=== PATIENT | female | born 1950 | race Caucasian/White ===

== ENCOUNTER 2019-05-16 13:18 | Outpatient (CLI) | payer BC, MEDICARE, SELFPAY ==
--- NOTE | 2019-05-16 13:38 | XR_ITS ---
WS: [email or web address] SCREENING DEXA SCAN [employer] CLINICAL INFORMATION: POSTMENOPAUSAL STATUS COMPARISON: None. FINDINGS: The L1-L4 bone mineral density measures 0.911 g/cm2. This corresponds to a T score score of -2.2 and Z score of -0.4. Left femoral neck bone mineral density measures 0.792 g/cm2. This corresponds to a T score of -1.7 an d Z score of -0.2. Right femoral neck bone mineral density measures 0.808 g/cm2. This corresponds to a T score -1.6of an d Z score of -0.1. Mean femoral neck bone mineral density measures 0.800 g/cm2. This corresponds to a T score of -1.7 an d Z score of -0.2. XR/XR DEXA axial skeleton* [id number] IMPRESSION: Osteopenia Patient's FRAX calculated 10 year probability for major osteoporotic fracture i s 12.3 % and osteoporotic hip fracture is 2.5%.
--- NOTE | 2019-05-16 14:12 | MM_ITS ---
WS: [id number] BILATERAL SCREENING DIGITAL MAMMOGRAM WITH CAD HISTORY: SCREENING COMPARISON: 02/15/2016, 02/25/2014 Bilateral CC and MLO views submitted. Computer aided detection analyzed. Breast composition: There are scattered areas of fibroglandular density. No suspicious masses, microc alcifications or architectural distortion. Intramammary lymph node upper outer quadrant of the LEFT b reast. MM/[id number] IMPRESSION: BI-RADS: 2-Benign FOLLOW UP: 1 Year Follow-up
== END 2019-05-16 13:19 | disposition home or self-care (01) ==
PROVIDERS: Family Provider Family Medicine; Visit Provider Family Medicine
DX: Z12.31 Encounter for screening mammogram for malignant neoplasm of breast (principal); Z78.0 Asymptomatic menopausal state
CPT/HCPCS: 77067; 77080

== ENCOUNTER 2020-05-21 14:35 | Outpatient (CLI) | payer MEDICARE, SELFPAY ==
--- NOTE | 2020-05-21 14:46 | MM_ITS ---
WS: [id number] BILATERAL SCREENING DIGITAL MAMMOGRAM WITH CAD HISTORY: SCREENING COMPARISON: 05/16/2019, 02/15/2016 at 12/05/2011. Bilateral CC and MLO views submitted. Computer aided detection analyzed. Breast composition: There are scattered areas of fibroglandular density. No suspicious masses, microc alcifications or architectural distortion. Long-term stability of an ovoid nodule upper outer quadran t LEFT breast. MM/[id number] IMPRESSION: BI-RADS: 2-Benign FOLLOW UP: 1 Year Follow-up
== END 2020-05-21 14:36 | disposition home or self-care (01) ==
LOC: RADSHAW 14:38
PROVIDERS: Family Provider Family Medicine; Visit Provider Nurse Practitioner Family
DX: Z12.31 Encounter for screening mammogram for malignant neoplasm of breast (principal)
CPT/HCPCS: 77067

== ENCOUNTER 2022-02-25 13:05 | Outpatient (CLI) | payer MEDICARE, SELFPAY ==
--- NOTE | 2022-02-25 13:19 | MM_ITS ---
WS: [id number] BILATERAL 3D TOMOSYNTHESIS DIGITAL SCREENING MAMMOGRAPHY WITH CAD CLINICAL INFORMATION: SCREENING HISTORY: Screening mammogram. No current complaints. COMPARISON: May 21, 2020 TECHNIQUE: Bilateral CC and MLO views. FINDINGS: Scattered fibroglandular densities bilaterally. No suspicious focal mass, asymmetry, calcifications, or architectural distortion. No evidence of malignancy. MM/[id number] IMPRESSION: BI-RADS: 1-Negative FOLLOW UP: 1 Year Follow-up Recommend return to annual screening mammography.
== END 2022-02-25 13:06 | disposition home or self-care (01) ==
PROVIDERS: PCP Nurse Practitioner Family; Visit Provider Nurse Practitioner Family
DX: Z12.31 Encounter for screening mammogram for malignant neoplasm of breast (principal)
CPT/HCPCS: 77063; 77067

== ENCOUNTER 2022-11-28 14:42 | Outpatient (CLI) | payer MEDICARE, SELFPAY ==
--- NOTE | 2022-11-28 15:02 | XRR_ITS ---
PROCEDURE INFORMATION: Exam: XR Right Shoulder Exam date and time: 11/28/2022 3:11 PM Age: 72 years old Clinical indication: Pain; Shoulder; Right; Additional info: Pain in R shoulder TECHNIQUE: Imaging protocol: Radiologic exam of the right shoulder. Views: 2 or more views. COMPARISON: No relevant prior studies available. FINDINGS: Bones/joints: Normal. Soft tissues: Normal. XR/XR shoulder RT min 2V* [id number] IMPRESSION: No acute findings.
== END 2022-11-28 14:43 | disposition home or self-care (01) ==
PROVIDERS: PCP Nurse Practitioner Family; Visit Provider Nurse Practitioner Family
DX: M25.511 Pain in right shoulder (principal)
CPT/HCPCS: 73030

== ENCOUNTER 2023-12-16 16:38 | Inpatient (IN) | payer MEDICARE, SELFPAY ==
[2023-12-16] VITALS (16 sets, daily range): BP systolic 74–102; BP diastolic 42–78; PULSE 95–140; RESP 15–27; TEMP 36.8–36.9; O2SAT 87–98; BMI 24.8; BMI 26.7
--- NOTE | 2023-12-16 17:05 | XRR_ITS ---
PROCEDURE INFORMATION: Exam: XR Chest Exam date and time: 12/16/2023 5:32 PM Age: 73 years old Clinical indication: Shortness of breath; Patient HX: Hypotension; Possible sepsis TECHNIQUE: Imaging protocol: Radiologic exam of the chest. Views: 1 view. COMPARISON: CR XR shoulder RT min 2V* [id number] 11/28/2022 3:11 PM FINDINGS: Lungs: Dense 1.1 cm calcified granuloma in the periphery of the left lower lobe. No focal consolidation. Pleural spaces: No significant pleural effusion. No pneumothorax. Heart/Mediastinum: Moderate to large hiatal hernia. Cardiomegaly. Bones/joints: Bilateral acromioclavicular joint degeneration. XR/XR chest 1V portable [id number] IMPRESSION: 1. No focal consolidation or sizable pleural effusion. 2. Cardiomegaly. 3. Moderate-sized hiatal hernia.
--- NOTE | 2023-12-16 17:11 | ED_ITS ---
Documented by User: Keke Oakley MD 12/16/23 17:42 HPI - Fever 2 General: Chief Complaint: Fever Stated Complaint: Low blood pressure Time Seen by Provider: 12/16/23 17:06 Source: patient Mode of arrival: ambulatory Limitations: no limitations History of Present Illness: 73-year-old female states that she woke this morning feeling nauseous states she has had multiple episodes of vomiting throughout the day. States she is had some chills and shakes and felt febrile states her temp got up to 99 afebrile here. Blood pressure in the room currently is 9458 heart rate 103. She denies any abdominal pain she had some mild dyspnea denies any cough denies any chest pain. She denies any diarrhea denies any worse improved factors. States she feels dehydrated and feels like her mouth is dry from vomiting Associated symptoms: Reports chills, nausea and vomiting; Deny abdominal pain, chest pain, diarrhea, dysuria or headache(s) Related Data Home Medications Medication Instructions Recorded Confirmed atorvastatin 20 mg tablet mg PO 12/16/23 12/16/23 cetirizine 10 mg tablet (Zyrtec) 10 mg PO DAILY PRN 12/16/23 12/16/23 levothyroxine 112 mcg tablet mcg PO 12/16/23 12/16/23 losartan 100 mg tablet mg PO 12/16/23 12/16/23 omega 0-emn-noy-fish oil 1,200 mg cap PO 12/16/23 12/16/23 (144 mg-216 mg) capsule (Fish Oil) vitamins A,C,J-xihn-rxolxj 2,148 2 tab PO BID 12/16/23 12/16/23 mcg-113 mg-45 mg-17.4 mg tablet (PreserVision AREDS) Allergies Allergy/AdvReac Type Severity Reaction Status Date / Time cefadroxil Allergy ALGY-Rash Verified 12/16/23 16:51 tetanus toxoid, adsorbed Allergy ADR-Vomitin Verified 12/16/23 16:51 g Review of Systems 2 Const: Reports: fever(s), chills and body aches; Denies: change in appetite Eyes: Denies: eye discomfort ENMT: Denies: throat pain or dental pain Card: Denies: chest pain Resp: Reports: dyspnea GI: Reports: nausea and vomiting; Denies: abdominal pain or diarrhea : Denies: dysuria Musc: Denies: neck pain or back pain Skin/Breast: Denies: rash Neuro: Denies: headache(s) PFSH ED 2 PFSH: Medical History Hypothyroidism Hyperlipidemia Hypertension Macular degeneration Surgical History History of eye surgery Family History Brother CAD (coronary artery disease) Brother Kidney stones Brother Alcohol dependence Social History Smoking and tobacco/nicotine status: former use of tobacco/nicotine Alcohol intake: never Substance/Drug Use: never Physical Exam 2 Const: COMMON NORMALS: patient oriented x3 HENMT: COMMON NORMALS: normocephalic and atraumatic HEAD & SCALP: n ormocephalic and atraumatic Eye: COMMON NORMALS: Equal, round and reactive pupils present and EOMs intact bilaterally PUPIL: Yes Equal, round and reactive pupils present Neck/C-Spine: COMMON NORMALS: full ROM and supple Chest: COMMONS NORMALS: normal inspection of the chest Resp: COMMON NORMALS: normal respiratory effort, No retractions, No use of accessory muscles and clear to auscultation bilaterally AUSCULTATION: clear to auscultation bilaterally Cardio: COMMON NORMALS: regular rhythm and No murmurs present (Cardio) R ATE: tachycardic RHYTHM: regular rhythm GI: COMMON NORMALS: Normal to inspection, nondistended, normoactive bowel sounds present, Soft to palpation, non-tender and no masses PALPATION: Yes Soft to palpation Extremity: COMMON NORMALS: normal to inspection and full ROM Neuro: COMMON NORMALS: patient oriented x3, moves all extremities and no focal motor deficits Psych: COMMON NORMALS: mental status grossly normal, Normal thought process present and cooperative THOUGHT PROCESS: Normal thought process present Skin: COMMON NORMALS: no rashes or lesions noted and no wounds GENERAL SKIN EXAM: no rashes or lesions noted Course 2 Vital Signs: Vital signs: Vital Signs Temperature 98.4 F 12/16/23 22:00 Pulse Rate 96 12/16/23 22:00 Respiratory Rate 17 12/16/23 22:00 Blood Pressure 82/43 12/16/23 22:00 Pulse Oximetry 96 12/16/23 22:00 Oxygen Delivery Me thod Room Air 12/16/23 22:00 MDM - Fever Medical Records I reviewed the patient's medical records. Lab Data I reviewed the patient's lab results. 12/16/23 17:09 12/16/23 17:09 Radiology Impressions Chest X-Ray 12/16/23 17:05 IMPRESSION: 1. No focal consolidation or sizable pleural effusion. 2. Cardiomegaly. 3. Moderate-sized hiatal hernia. Chest/Abdomen/Pelvis CT 12/16/23 18:01 IMPRESSION: 1. 2.0 cm pure ground-glass right upper lobe nodule, suspicious for adenocarcinoma spectrum lesion. No solid component. Follow-up per Fleischner guidelines recommended. 2. Additional biapical solid nodules, which may be related to nodular pleural-parenchymal scarring. Close attention on follow-up imaging is also recommended. 3. Moderate to large hiatal hernia. 4. No focal consolidation or acute findings. IMPRESSION: 1. Diffuse bladder wall thickening, suspicious for cystitis. 2. Left perinephric and periureteral stranding and edema, suspicious for pyelonephritis and ureteritis. Findings may also be related to a recently passed stone. There is no CT evidence of nephrolithiasis. No hydronephrosis. 3. Left upper retroperitoneal lymphadenopathy, likely reactive. COMMENTS: Consistent with the [employer]'s Incidental Findings Committee white paper (J Am Kevan Radiol 2018): Any incidental renal lesion less than 1 cm or classified as too small to characterize, or any incidental cystic renal lesion characterized as simple-appearing, is likely benign. No follow-up imaging is recommended for these lesions per consensus recommendations based on imaging criteria. Laboratory Results WBC 15.63 10^3/uL (3.29-11.43) H 12/16/23 17:09 RBC 4.00 10^6/uL (3.85-5.65) 12/16/23 17:09 Hgb 10.90 g/dL (11.27-16.99) L 12/16/23 17:09 Hct 34.2 % (36-47) L 12/16/23 17:09 MCV 85.5 fl (85-98) 12/16/23 17:09 MCH 27.3 pg (27-33) 12/16/23 17:09 MCHC 31.9 g/dL (30-55) 12/16/23 17:09 RDW 14.0 % (12.1-15.1) 12/16/23 17:09 Plt Count 260 10^3/cmm (157-399) 12/16/23 17:09 MPV 9.7 fL (7.4-10.4) 12/16/23 17:09 Neut % (Auto) 94.9 % 12/16/23 17:09 Lymph % (Auto) 2.8 % 12/16/23 17:09 Whiteside % (Auto) 1.1 % 12/16/23 17:09 Eos % (Auto) 0.2 % 12/16/23 17:09 Baso % (Auto) 0.4 % 12/16/23 17:09 Neut # (Auto) 14.83 10^3/uL (1.8-7.7) H 12/16/23 17:09 Lymph # (Auto) 0.4 10^3/uL (0.8-4.8) L 12/16/23 17:09 Whiteside # (Auto) 0.2 10^3/uL (0.2-0.9) 12/16/23 17:09 Eos # (Auto) 0.0 10^3/uL (0.0-0.8) 12/16/23 17:09 Baso # (Auto) 0.1 10^3/uL (0.0-0.1) 12/16/23 17:09 Nucleated RBC % (auto) 0 % 12/16/23 17:09 Nucleated RBCs # 0.0 /100WBC 12/16/23 17:09 Specimen Type Arterial 12/16/23 17:04 Sample Site Radial, right 12/16/23 17:04 ABG pH 7.44 (7.35-7.45) 12/16/23 17:04 ABG pCO2 28.2 mmHg (35-45) L 12/16/23 17:04 ABG pO2 36.5 mmHg (80.0-100.0) L* 12/16/23 17:04 ABG PO2/FiO2 Ratio 173 12/16/23 17:04 ABG HCO3 19.3 mmol/L (22-26) L 12/16/23 17:04 ABG O2 Saturation 71.5 12/16/23 17:04 ABG Base Excess -3.8 mmol/L (-2.0-2.0) L 12/16/23 17:04 Josemanuel Test Pos 12/16/23 17:04 A-a O2 Gradient 10.1 mmHg (5-10) H 12/16/23 17:04 Hematocrit 34.2 % (37-47) L 12/16/23 17:04 Hgb O2 Saturation 70.0 % (95-100) L 12/16/23 17:04 Carboxyhemoglobin 0.8 %THgb (0.4-20.1) 12/16/23 17:04 Methemoglobin 1.3 % (0.4-1.5) 12/16/23 17:04 Total Hemoglobin 11.2 g/dL (12-16) L 12/16/23 17:04 Sodium 135.0 mmol/L (131-143) 12/16/23 17:04 Potassium 4.1 mmol/L (3.5-5.0) 12/16/23 17:04 Glucose 109.0 mg/dL (70-115) 12/16/23 17:04 Ionized Calcium 1.2 mmol/L (1.1-1.4) 12/16/23 17:04 O2 Delivery Device Room air 12/16/23 17:04 FiO2 21.0 % 12/16/23 17:04 Acoustical Carpenter ID 2alci 12/16/23 17:04 Sodium 133 mmol/L (136-145) L 12/16/23 17:09 Potassium 4.2 mmol/L (3.5-5.1) 12/16/23 17:09 Chloride 100 mmol/L (98-107) 12/16/23 17:09 Carbon Dioxide 19 mmol/L (22-29) L 12/16/23 17:09 Anion Gap 18.2 (5-19) 12/16/23 17:09 BUN 32 mg/dL (8-23) H 12/16/23 17:09 Creatinine 2.5 mg/dL (0.5-0.9) H 12/16/23 17:09 GFR Calculation Not Reportable 12/16/23 17:09 Glucose 111 mg/dL (65-115) 12/16/23 17:09 Calculated Osmolality 284 mOsm/kg (285-295) L 12/16/23 17:09 Lactic Acid 2.6 mmol/L (0.5-2.2) H 12/16/23 17:09 Lactic Acid (Sepsis) 2.7 mmol/L (0.5-2.2) H 12/16/23 20:08 Calcium 8.9 mg/dL (8.5-10.5) 12/16/23 17:09 Magnesium 1.8 mg/dL (1.7-2.3) 12/16/23 17:09 Total Bilirubin 0.3 mg/dL (0.15-1.2) 12/16/23 17:09 AST 382 U/L (0-32) H 12/16/23 17:09 ALT 266 U/L (0-33) H 12/16/23 17:09 Alkaline Phosphatase 207 U/L (35-105) H 12/16/23 17:09 Troponin T Baseline 11 ng/L (0-10) H 12/16/23 17:09 Troponin T 120 Minute 7.99 ng/L (0-10) 12/16/23 18:48 Delta Troponin T -3.01 ABS# (0-10) L 12/16/23 18:48 Total Protein 6.5 g/dL (6.6-8.7) L 12/16/23 17:09 Albumin 3.7 g/dL (3.5-5.2) 12/16/23 17:09 Globulin 2.8 g/dL (1.3-4.6) 12/16/23 17:09 TSH 0.90 uIU/mL (0.27-4.20) 12/16/23 17:09 Urine Color Yellow (Yellow) 12/16/23 18:05 Urine Appearance Turbid (CLEAR) A 12/16/23 18:05 Urine pH 5.5 (5-7) 12/16/23 18:05 Ur Specific [place] 1.016 (1.005-1.030) 12/16/23 18:05 Urine Protein 2+ (Negative) A 12/16/23 18:05 Urine Glucose (UA) Negative (Normal) 12/16/23 18:05 Urine Ketones Trace (Negative) 12/16/23 18:05 Urine Blood 3+ (Negative) A 12/16/23 18:05 Urine Nitrate Negative (Negative) 12/16/23 18:05 Urine Bilirubin Negative (Negative) 12/16/23 18:05 Urine Urobilinogen 1.0 mg/dL (Negative) 12/16/23 18:05 Ur Leukocyte Esterase 3+ (Negative) A 12/16/23 18:05 Urine RBC 0-2 /hpf (0-2) 12/16/23 18:05 Urine WBC >100 /hpf (0-5) H 12/16/23 18:05 Ur Squamous Epith Cells 6-10 /hpf (0-5) 12/16/23 18:05 Amorphous Sediment Not Reportable 12/16/23 18:05 Urine Bacteria 4+ /hpf (NONE) H 12/16/23 18:05 Hyaline Casts 44.25 /lpf 12/16/23 18:05 Urine Mucus 1+ /hpf 12/16/23 18:05 SARS-CoV-2 Ag (Rapid) negative (Negative) 12/16/23 17:29 All radiology interpretation(s) finalized by discharge EKG Data EKG 1: I personally reviewed and interpreted this EKG as follows: EKG interpretation date: 12/16/23 EKG interpretation time: 17:29 Interpretation: sinus tach hr [address] elevation qrs 93 qtc 382 Discharge Plan Discharge Patient Disposition: Admitted As Inpatient Admit Provider: Zion Vu Clinical Impression: Pyelonephritis, Sepsis, ROSALINDA (acute kidney injury) Condition: Stable Coding Level of Care Code ED [employer] Director for Chg Fwd Documented by User: Salvador Brown DO 12/17/23 00:21 HPI - Fever 2 General: Chief Complaint: Fever Stated Complaint: Low blood pressure Time Seen by Provider: 12/16/23 17:06 Related Data Home Medications Medication Instructions Recorded Confirmed atorvastatin 20 mg tablet mg PO 12/16/23 12/16/23 cetirizine 10 mg tablet (Zyrtec) 10 mg PO DAILY PRN 12/16/23 12/16/23 levothyroxine 112 mcg tablet mcg PO 12/16/23 12/16/23 losartan 100 mg tablet mg PO 12/16/23 12/16/23 omega 3-kvm-rbo-fish oil 1,200 mg cap PO 12/16/23 12/16/23 (144 mg-216 mg) capsule (Fish Oil) vitamins A,C,S-ybqg-dafynd 2,148 2 tab PO BID 12/16/23 12/16/23 mcg-113 mg-45 mg-17.4 mg tablet (PreserVision AREDS) Allergies Allergy/AdvReac Type Severity Reaction Status Date / Time cefadroxil Allergy ALGY-Rash Verified 12/16/23 16:51 tetanus toxoid, adsorbed Allergy ADR-Vomitin Verified 12/16/23 16:51 g PFSH ED 2 PFSH: Medical History Hypothyroidism Hyperlipidemia Hypertension Macular degeneration Surgical History History of eye surgery Family History Brother CAD (coronary artery disease) Brother Kidney stones Brother Alcohol dependence Social History Smoking and tobacco/nicotine status: former use of tobacco/nicotine Alcohol intake: never Substance/Drug Use: never Course 2 Vital Signs: Vital signs: Vital Signs Temperature 98.4 F 12/16/23 22:00 Pulse Rate 96 12/16/23 22:00 Respiratory Rate 17 12/16/23 22:00 Blood Pressure 82/43 12/16/23 22:00 Pulse Oximetry 96 12/16/23 22:00 Oxygen Delivery Me thod Room Air 12/16/23 22:00 MDM - Fever Medical Decision Making Received in checkout at shift change. 73-year-old lady with chills, feeling feverish, vomiting. White blood cell count is 15.6. Creatinine is up to 2.5. Bicarbonate is 19. Lactic acid is 2.5. Urinalysis shows greater than 100 whites. 0-2 reds. 3+ leukocyte esterase. She has received a sepsis bolus. Initially pressures were in the 80s systolic, she has been 90s over 50s and 60s since her initial liter. She said 2.5 L plus, maintenance now. She is awake alert and talking. CT shows left perinephric and periureteral stranding which looks like pyelonephritis. There is no hydronephrosis or obstruction. She will be admitted. She go to the ICU given her soft blood pressures. She is maintained a MAP above 65 at this point, so she is not on pressors. Hospitalist is aware and will see the patient Lab Data 12/16/23 17:09 12/16/23 17:09 Radiology Impressions Chest X-Ray 12/16/23 17:05 IMPRESSION: 1. No focal consolidation or sizable pleural effusion. 2. Cardiomegaly. 3. Moderate-sized hiatal hernia. Chest/Abdomen/Pelvis CT 12/16/23 18:01 IMPRESSION: 1. 2.0 cm pure ground-glass right upper lobe nodule, suspicious for adenocarcinoma spectrum lesion. No solid component. Follow-up per Fleischner guidelines recommended. 2. Additional biapical solid nodules, which may be related to nodular pleural-parenchymal scarring. Close attention on follow-up imaging is also recommended. 3. Moderate to large hiatal hernia. 4. No focal consolidation or acute findings. IMPRESSION: 1. Diffuse bladder wall thickening, suspicious for cystitis. 2. Left perinephric and periureteral stranding and edema, suspicious for pyelonephritis and ureteritis. Findings may also be related to a recently passed stone. There is no CT evidence of nephrolithiasis. No hydronephrosis. 3. Left upper retroperitoneal lymphadenopathy, likely reactive. COMMENTS: Consistent with the [employer]'s Incidental Findings Committee white paper (J Am Kevan Radiol 2018): Any incidental renal lesion less than 1 cm or classified as too small to characterize, or any incidental cystic renal lesion characterized as simple-appearing, is likely benign. No follow-up imaging is recommended for these lesions per consensus recommendations based on imaging criteria. Laboratory Results WBC 15.63 10^3/uL (3.29-11.43) H 12/16/23 17:09 RBC 4.00 10^6/uL (3.85-5.65) 12/16/23 17:09 Hgb 10.90 g/dL (11.27-16.99) L 12/16/23 17:09 Hct 34.2 % (36-47) L 12/16/23 17:09 MCV 85.5 fl (85-98) 12/16/23 17:09 MCH 27.3 pg (27-33) 12/16/23 17:09 MCHC 31.9 g/dL (30-55) 12/16/23 17:09 RDW 14.0 % (12.1-15.1) 12/16/23 17:09 Plt Count 260 10^3/cmm (157-399) 12/16/23 17:09 MPV 9.7 fL (7.4-10.4) 12/16/23 17:09 Neut % (Auto) 94.9 % 12/16/23 17:09 Lymph % (Auto) 2.8 % 12/16/23 17:09 Whiteside % (Auto) 1.1 % 12/16/23 17:09 Eos % (Auto) 0.2 % 12/16/23 17:09 Baso % (Auto) 0.4 % 12/16/23 17:09 Neut # (Auto) 14.83 10^3/uL (1.8-7.7) H 12/16/23 17:09 Lymph # (Auto) 0.4 10^3/uL (0.8-4.8) L 12/16/23 17:09 [place] # (Auto) 0.2 10^3/uL (0.2-0.9) 12/16/23 17:09 Eos # (Auto) 0.0 10^3/uL (0.0-0.8) 12/16/23 17:09 Baso # (Auto) 0.1 10^3/uL (0.0-0.1) 12/16/23 17:09 Nucleated RBC % (auto) 0 % 12/16/23 17:09 Nucleated RBCs # 0.0 /100WBC 12/16/23 17:09 Specimen Type Arterial 12/16/23 17:04 Sample Site Radial, right 12/16/23 17:04 ABG pH 7.44 (7.35-7.45) 12/16/23 17:04 ABG pCO2 28.2 mmHg (35-45) L 12/16/23 17:04 ABG pO2 36.5 mmHg (80.0-100.0) L* 12/16/23 17:04 ABG PO2/FiO2 Ratio 173 12/16/23 17:04 ABG HCO3 19.3 mmol/L (22-26) L 12/16/23 17:04 ABG O2 Saturation 71.5 12/16/23 17:04 ABG Base Excess -3.8 mmol/L (-2.0-2.0) L 12/16/23 17:04 Josemanuel Test Pos 12/16/23 17:04 A-a O2 Gradient 10.1 mmHg (5-10) H 12/16/23 17:04 Hematocrit 34.2 % (37-47) L 12/16/23 17:04 Hgb O2 Saturation 70.0 % (95-100) L 12/16/23 17:04 Carboxyhemoglobin 0.8 %THgb (0.4-20.1) 12/16/23 17:04 Methemoglobin 1.3 % (0.4-1.5) 12/16/23 17:04 Total Hemoglobin 11.2 g/dL (12-16) L 12/16/23 17:04 Sodium 135.0 mmol/L (131-143) 12/16/23 17:04 Potassium 4.1 mmol/L (3.5-5.0) 12/16/23 17:04 Glucose 109.0 mg/dL (70-115) 12/16/23 17:04 Ionized Calcium 1.2 mmol/L (1.1-1.4) 12/16/23 17:04 O2 Delivery Device Room air 12/16/23 17:04 FiO2 21.0 % 12/16/23 17:04 Acoustical Carpenter ID 2alci 12/16/23 17:04 Sodium 133 mmol/L (136-145) L 12/16/23 17:09 Potassium 4.2 mmol/L (3.5-5.1) 12/16/23 17:09 Chloride 100 mmol/L (98-107) 12/16/23 17:09 Carbon Dioxide 19 mmol/L (22-29) L 12/16/23 17:09 Anion Gap 18.2 (5-19) 12/16/23 17:09 BUN 32 mg/dL (8-23) H 12/16/23 17:09 Creatinine 2.5 mg/dL (0.5-0.9) H 12/16/23 17:09 GFR Calculation Not Reportable 12/16/23 17:09 Glucose 111 mg/dL (65-115) 12/16/23 17:09 Calculated Osmolality 284 mOsm/kg (285-295) L 12/16/23 17:09 Lactic Acid 2.6 mmol/L (0.5-2.2) H 12/16/23 17:09 Lactic Acid (Sepsis) 2.7 mmol/L (0.5-2.2) H 12/16/23 20:08 Calcium 8.9 mg/dL (8.5-10.5) 12/16/23 17:09 Magnesium 1.8 mg/dL (1.7-2.3) 12/16/23 17:09 Total Bilirubin 0.3 mg/dL (0.15-1.2) 12/16/23 17:09 AST 382 U/L (0-32) H 12/16/23 17:09 ALT 266 U/L (0-33) H 12/16/23 17:09 Alkaline Phosphatase 207 U/L (35-105) H 12/16/23 17:09 Troponin T Baseline 11 ng/L (0-10) H 12/16/23 17:09 Troponin T 120 Minute 7.99 ng/L (0-10) 12/16/23 18:48 Delta Troponin T -3.01 ABS# (0-10) L 12/16/23 18:48 Total Protein 6.5 g/dL (6.6-8.7) L 12/16/23 17:09 Albumin 3.7 g/dL (3.5-5.2) 12/16/23 17:09 Globulin 2.8 g/dL (1.3-4.6) 12/16/23 17:09 TSH 0.90 uIU/mL (0.27-4.20) 12/16/23 17:09 Urine Color Yellow (Yellow) 12/16/23 18:05 Urine Appearance Turbid (CLEAR) A 12/16/23 18:05 Urine pH 5.5 (5-7) 12/16/23 18:05 Ur Specific [place] 1.016 (1.005-1.030) 12/16/23 18:05 Urine Protein 2+ (Negative) A 12/16/23 18:05 Urine Glucose (UA) Negative (Normal) 12/16/23 18:05 Urine Ketones Trace (Negative) 12/16/23 18:05 Urine Blood 3+ (Negative) A 12/16/23 18:05 Urine Nitrate Negative (Negative) 12/16/23 18:05 Urine Bilirubin Negative (Negative) 12/16/23 18:05 Urine Urobilinogen 1.0 mg/dL (Negative) 12/16/23 18:05 Ur Leukocyte Esterase 3+ (Negative) A 12/16/23 18:05 Urine RBC 0-2 /hpf (0-2) 12/16/23 18:05 Urine WBC >100 /hpf (0-5) H 12/16/23 18:05 Ur Squamous Epith Cells 6-10 /hpf (0-5) 12/16/23 18:05 Amorphous Sediment Not Reportable 12/16/23 18:05 Urine Bacteria 4+ /hpf (NONE) H 12/16/23 18:05 Hyaline Casts 44.25 /lpf 12/16/23 18:05 Urine Mucus 1+ /hpf 12/16/23 18:05 SARS-CoV-2 Ag (Rapid) negative (Negative) 12/16/23 17:29 Critical Care Time 2 Critical Care Time: Critical Care Time: Yes Total Critical Care Time: 35 Attestation: This case had a high probability of a clinically significant, sudden, or life threatening deterioration of this patient's condition which required my full and direct attention, intervention and personal management. Time is independent of any procedures performed. Discharge Plan Discharge Patient Disposition: Admitted As Inpatient Admit Provider: Zion Vu Clinical Impression: Pyelonephritis, Sepsis, ROSALINDA (acute kidney injury) Condition: Stable Coding Level of Care Code ED [employer] Director for Sonia Nichols
[2023-12-16 17:15] LABS: ABG PCO2 28.2 mmHg (35-45); ABG PH Result 7.44 (7.35-7.45); Alveolar-Arterial Oxygen Gradi 10.1 mmHg (5-10); Arterial Blood Gas Hematocrit 34.2 % (37-47); Base Excess ABG -3.8 mmol/L (-2.0-2.0); Blood Gas Allen Test Pos; Blood Gas Operator Identificat 2ALCI; Blood Gas Sample Site Radial, right; Blood Gas Sample Type Arterial; Carboxyhemoglobin 0.8 %THgb (0.4-20.1); HCO3 ABG 19.3 mmol/L (22-26); Ionized Calcium Level - ABG 1.2 mmol/L (1.1-1.4); Methemoglobin 1.3 % (0.4-1.5); Oxygen Device ROOM AIR; Oxygen Saturation ABG 71.5; PO2 ABG 36.5 mmHg (80.0-100.0); PO2 FiO2 Ratio Arterial Blood 173; Potassium Level - ABG 4.1 mmol/L (3.5-5.0); Total Hemoglobin 11.2 g/dL (12-16)
[2023-12-16 17:16] LABS: Basophils # 0.1 10^3/uL (0.0-0.1); Basophils % 0.4 %; Eosinophils % 0.2 %; Hematocrit 34.2 % (36-47); Lymphocytes # 0.4 10^3/uL (0.8-4.8); Lymphocytes % 2.8 %; Mean Corpuscular HGB Conc 31.9 g/dL (30-55); Mean Corpuscular Hemoglobin 27.3 pg (27-33); Mean Corpuscular Volume 85.5 fl (85-98); Mean Platelet Volume 9.7 fL (7.4-10.4); Monocytes # 0.2 10^3/uL (0.2-0.9); Monocytes % 1.1 %; Neutrophils # 14.83 10^3/uL (1.8-7.7); Neutrophils % 94.9 %; Nucleated Red Blood Cells % 0 %; Platelet Count 260 10^3/cmm (157-399); White Blood Count 15.63 10^3/uL (3.29-11.43)
--- NOTE | 2023-12-16 17:20 | PC.RESP ---
ABG ORDERED. RT ATTEMPTED TO DRAW ARTERIAL GAS. AFTER RUNNING GAS, IT WAS DETERMINED THAT IT WAS VENOUS. RT TOOK RESULTS TO DR. BEYER. DR BEYER STATED HE WAS ALRIGHT WITH IT BEING AN VENOUS GAS AND DID NOT WISH TO HAVE RT REATTEMPT ABG AT THIS TIME. RESULTS IN CHART ARE VENOUS GAS RESULTS
[2023-12-16] MEDS: sodium chloride 0.9% 1,850.67 ML 1850.67 ML IV (17:28)
[2023-12-16] MEDS: ondansetron 2 mg/ML SDV 2 mL 4 MG IVP ×2 (17:28→23:43)
--- NOTE | 2023-12-16 17:29 | ECG_ITS ---
[facility] Test Date: 2023-12-16 Pat Name: Jennifer Barreto Department: Room: Gender: Female Progress Clerk: : 1950 Requested By: Keke Oakley Order Number: [id number] Reading MD: ASHLEE OLIVA Measurements Intervals [place] Rate: 100 P: 52 IN: 173 QRS: -3 QRSD: 93 T: 20 QT: 325 QTc: 420 Interpretive Statements SINUS TACHYCARDIA POSSIBLE LEFT ATRIAL ENLARGEMENT [-0.1mV P-WAVE IN V1/V2] LOW QRS VOLTAGE IN PRECORDIAL LEADS [QRS DEFLECTION < 1.0 mV IN CHEST LEADS] INCOMPLETE RIGHT BUNDLE BRANCH BLOCK [90+ ms QRS DURATION, TERMINAL R IN V1/V2, 40+ ms S IN I/aVL/V4/V5/V6] POSSIBLE LEFT VENTRICULAR HYPERTROPHY [VOLTAGE CRITERIA PLUS LAE OR QRS WIDENING] MINIMAL ST DEPRESSION [0.025+ mV ST DEPRESSION] No previous ECG available for comparison Electronically Signed On 12-16-2023 20:27:17 CDT by ASHLEE OLIVA [email or web address]
[2023-12-16 17:36] LABS: Troponin(5th) Baseline 11 ng/L (0-10)
[2023-12-16 17:37] LABS: Lactic Sepsis W/Reflex 2.6 mmol/L (0.5-2.2)
[2023-12-16 17:46] LABS: Alanine Aminotransferase 266 U/L (0-33); Albumin Level 3.7 g/dL (3.5-5.2); Alkaline Phosphatase 207 U/L (35-105); Anion Gap 18.2 (5-19); Aspartate Amino Transferase 382 U/L (0-32); Blood Urea Nitrogen 32 mg/dL (8-23); Calcium 8.9 mg/dL (8.5-10.5); Carbon Dioxide 19 mmol/L (22-29); Chloride 100 mmol/L (98-107); Globulin 2.8 g/dL (1.3-4.6); Glucose 111 mg/dL (65-115); Magnesium 1.8 mg/dL (1.7-2.3); Osmolality Calculated 284 mOsm/kg (285-295); Potassium 4.2 mmol/L (3.5-5.1); Sodium 133 mmol/L (136-145); Total Bilirubin 0.3 mg/dL (0.15-1.2); Total Protein 6.5 g/dL (6.6-8.7)
[2023-12-16 17:52] LABS: SARS Covid-2 Antigen negative (Negative)
[2023-12-16 17:56] LABS: Creatinine Clr Calc Pharmacy 17.5762
--- NOTE | 2023-12-16 18:01 | CTR_ITS ---
PROCEDURE INFORMATION: Exam: CT Chest Without Contrast; Diagnostic Exam date and time: 12/16/2023 6:15 PM Age: 73 years old Clinical indication: Pain and abnormal findings; Abnormal lab test; Abnormal kidney function lab tests and elevated wbc; Nausea and vomiting; Abdominal pain; Generalized; Abnormal diagnostic tests; Abnormal wbc; Shortness of breath; Other: N/a; Patient HX: C/O SOB with n/v. Hypotensive with cara and p02 of 36.5. ; Additional info: Abd pain TECHNIQUE: Imaging protocol: Diagnostic computed tomography of the chest without contrast. Radiation optimization: All CT scans at this facility use at least one of these dose optimization techniques: automated exposure control; mA and/or kV adjustment per patient size (includes targeted exams where dose is matched to clinical indication); or iterative reconstruction. COMPARISON: CR (CHEST, ) 12/16/2023 5:32 PM RADIATION DOSE METRICS: Total DLP (mGy-cm): 610.06 FINDINGS: Limitations: The images are motion degraded. Trachea: Small right posterior tracheal diverticulum. The central airways are patent. Lungs: 2.0 cm right upper lobe pure ground-glass nodule (series 3, image 17), with internal cystic spaces and adjacent mild bronchiolectasis. No solid component. Additional right apical nodules, including a 10 mm peripheral right upper lobe nodule (series 3, image 15), which may be discrete solid nodules or represent nodular pleuroparenchymal scarring. Nodular scarring also noted in the left apex. 15.5 cm calcified granuloma in the periphery of the left lower lobe. No focal consolidation. Bibasilar atelectasis. Pleural spaces: No pleural effusion. No pneumothorax. Heart: The heart is normal in size. Coronary arteries: There are scattered mild coronary artery calcifications. Lymph nodes: No enlarged lymph nodes by CT size criteria. Vasculature: Moderate calcifications of the thoracic aorta. The aorta is normal in caliber. No aneurysm. Diaphragm: Moderate to large hiatal hernia. Bones/joints: The spine demonstrates mild degenerative changes at multiple levels. No acute fracture. Soft tissues: Soft tissues are unremarkable as visualized. COMMENTS: Recommend CT Chest at 6-12 months to confirm persistence of the nodule, then CT Chest at 3 years and 5 years. (Reference: Zach) REFERENCES: Zach Lyn et al. Guidelines for Management of Incidental Pulmonary Nodules Detected on CT Images: From the Fleischner Society 2017. Radiology. 2017;284(1):228-243. PROCEDURE INFORMATION: Exam: CT Abdomen And Pelvis Without Contrast Exam date and time: 12/16/2023 6:15 PM Age: 73 years old Clinical indication: Pain and abnormal findings; Abnormal lab test; Abnormal kidney function lab tests and elevated wbc; Nausea and vomiting; Abdominal pain; Generalized; Abnormal diagnostic tests; Abnormal wbc; Shortness of breath; Other: N/a; Patient HX: C/O SOB with n/v. Hypotensive with cara and p02 of 36.5. ; Additional info: Abd pain TECHNIQUE: Imaging protocol: Computed tomography of the abdomen and pelvis without contrast. Radiation optimization: All CT scans at this facility use at least one of these dose optimization techniques: automated exposure control; mA and/or kV adjustment per patient size (includes targeted exams where dose is matched to clinical indication); or iterative reconstruction. COMPARISON: CR (CHEST, ) 12/16/2023 5:32 PM RADIATION DOSE METRICS: Total DLP (mGy-cm): 610.06 FINDINGS: Liver: The liver is normal. Gallbladder and biliary ducts: Mild gallbladder sludge. No biliary dilation. Pancreas: The pancreas is normal. Spleen: The spleen is normal. Adrenal glands: The adrenal glands are unremarkable. Kidneys and ureters: Left perinephric stranding and edema. No hydronephrosis. No nephrolithiasis. No visualized stone within the left ureter. 7 mm hyperdense proteinaceous/hemorrhagic renal cyst in the right upper pole. Stomach and bowel: Colonic diverticulosis without evidence of diverticulitis. Appendix: A normal appendix is identified. Intraperitoneal space: No significant peritoneal free fluid. No free peritoneal air. Vasculature: The vasculature demonstrates diffuse moderate atherosclerotic calcification. Lymph nodes: Prominent left upper retroperitoneal/perinephric lymph nodes measuring up to 1.1 cm in short axis, likely reactive. Urinary bladder: There is diffuse bladder wall thickening. Reproductive: Uterus is unremarkable. No suspicious adnexal lesion seen. Bones/joints: Severe degenerative changes of the lumbar spine. No acute fracture. Soft tissues: Soft tissues are unremarkable as visualized. CT/[place] [id number] IMPRESSION: 1. 2.0 cm pure ground-glass right upper lobe nodule, suspicious for adenocarcinoma spectrum lesion. No solid component. Follow-up per Fleischner guidelines recommended. 2. Additional biapical solid nodules, which may be related to nodular pleural-parenchymal scarring. Close attention on follow-up imaging is also recommended. 3. Moderate to large hiatal hernia. 4. No focal consolidation or acute findings. IMPRESSION: 1. Diffuse bladder wall thickening, suspicious for cystitis. 2. Left perinephric and periureteral stranding and edema, suspicious for pyelonephritis and ureteritis. Findings may also be related to a recently passed stone. There is no CT evidence of nephrolithiasis. No hydronephrosis. 3. Left upper retroperitoneal lymphadenopathy, likely reactive. COMMENTS: Consistent with the [place]'s Incidental Findings Committee white paper (J Am Kevan Radiol 2018): Any incidental renal lesion less than 1 cm or classified as too small to characterize, or any incidental cystic renal lesion characterized as simple-appearing, is likely benign. No follow-up imaging is recommended for these lesions per consensus recommendations based on imaging criteria.
[2023-12-16] MEDS: sodium chloride 0.9% 500 ML 999 ML IV (18:08)
[2023-12-16 18:12] LABS: Charge for UA Resulting for Rev
[2023-12-16 18:14] LABS: Bilirubin Urine Negative (Negative); Blood Urine 3+ (Negative); Glucose Urine UA Negative (Normal); Ketones Urine Trace (Negative); Leukocyte Esterase Urine 3+ (Negative); Nitrate Urine Negative (Negative); Protein Urine 2+ (Negative); Specific Gravity, Urine 1.016 (1.005-1.030); Urine Appearance Turbid (CLEAR); Urine Color Yellow (Yellow); pH Urine 5.5 (5-7)
[2023-12-16 18:19] LABS: Bacteria Urine 4+ /hpf; Hyaline Casts Urine 44.25 /lpf; RBC Urine 0-2 /hpf (0-2); WBC Urine >100 /hpf (0-5)
[2023-12-16 18:30] LABS: Add Urine Culture? Yes; Mucus Urine 1+ /hpf; UA Slide Review UA Slide Review Perf
[2023-12-16 19:01] LABS: Reflex Lactate Order REFLEX LACTIC ORDERD
--- NOTE | 2023-12-16 19:05 | ECG_ITS ---
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
[2023-12-16 19:18] LABS: Troponin 5 2HR 7.99 ng/L (0-10); Troponin 5 2HR Delta -3.01 ABS# (0-10)
[2023-12-16] MEDS: sodium chloride 0.9% 1,000 ML 175 ML IV (19:38)
[2023-12-16] MEDS: piperacillin-tazobactam 3.375 GM in sodium chloride 0.9% (plus) 50 ML IV (19:43)
--- NOTE | 2023-12-16 20:21 | P.HP_ITS ---
Providers/Chief Complaint 2 Primary Care Provider: Hoda Solano Chief Complaint: Low blood pressure History of Present Illness Jennifer Barreto is a 73 year old female with a past medical history significant for hypertension, hyperlipidemia, hypothyroidism, and macular degeneration who presents to the emergency department with intractable nausea and vomiting. Patient states symptoms started this morning. She reports she has not been able to hold anything down. She endorses associated left-sided low back tenderness. She reports radiation into her low abdomen. She endorses chills. Denies fevers. She states she found her blood pressure was low at home with a reading of 79/44. She endorses associated lightheadedness and dizziness. Exertion worsens symptoms., Rest improves. She did take some Tylenol which did help with the pain slightly. Denies other alleviating or aggravating factors. In the emergency department, patient was found to be tachycardic and hypotensive. Labs revealed leukocytosis, hyponatremia, metabolic acidosis, lactic acidosis, elevated BUN and creatinine, transaminitis, and abnormal urinalysis consistent with infection. Patient denies past medical history of kidney disease. CT revealed diffuse bladder wall thickening with left perinephric and periureteral stranding suspicious for pyelonephritis and ureteritis. There was no CT evidence of nephrolithiasis or hydronephrosis. Review of Systems 2 Narrative: A complete review of systems was obtained and is negative except as stated in HPI. Medications/Allergies Home Medications Medication Instructions Recorded Confirmed Last Taken Type atorvastatin 20 mg tablet mg PO 12/16/23 12/16/23 Unknown History cetirizine 10 mg tablet (Zyrtec) 10 mg PO DAILY PRN 12/16/23 12/16/23 Unknown History levothyroxine 112 mcg tablet mcg PO 12/16/23 12/16/23 Unknown History losartan 100 mg tablet mg PO 12/16/23 12/16/23 Unknown History omega 8-bgg-col-fish oil 1,200 mg cap PO 12/16/23 12/16/23 Unknown History (144 mg-216 mg) capsule (Fish Oil) vitamins A,C,Q-tafw-carjtl 2,148 2 tab PO BID 12/16/23 12/16/23 Unknown History mcg-113 mg-45 mg-17.4 mg tablet (PreserVision AREDS) Allergies Allergy/AdvReac Type Severity Reaction Status Date / Time cefadroxil Allergy ALGY-Rash Verified 12/16/23 16:51 tetanus toxoid, adsorbed Allergy ADR-Vomitin Verified 12/16/23 16:51 g PFSH Acute 2 PFSH: Medical History Hypothyroidism Hyperlipidemia Hypertension Macular degeneration Surgical History History of eye surgery Family History Brother CAD (coronary artery disease) Brother Kidney stones Brother Alcohol dependence Social History Smoking and tobacco/nicotine status: former use of tobacco/nicotine Alcohol intake: never Substance/Drug Use: never Vitals/I&O/Wt Last Vital Signs Temp 98.2 F 12/16/23 16:45 Pulse 101 H 12/16/23 19:30 Resp 18 12/16/23 19:30 BP 94/58 12/16/23 19:30 Pulse Ox 96 12/16/23 19:30 O2 Del Method Room Air 12/16/23 19:30 12/16/23 12/16/23 12/16/23 06:59 14:59 22:59 Intake Total 2350.67 / 2350.67 Balance 2350.67 / 2350.67 Weight last 48 hrs Weight 61.689 kg Physical Exam 2 Narrative: General: Patient is awake. Appears fatigued but very pleasant. Head: Normocephalic. Atraumatic. EOM intact. Dry mucous membranes. Neck: No JVD. Cardiovascular: Regular rhythm. No gallops. No murmurs. Tachycardic. Soft blood pressure. Lungs: Clear to auscultation, no use of accessory muscles, no crackles or wheezes. Skin: No jaundice. No rashes. Abdomen: Normal bowel sounds, abdomen soft and nontender. Genito Urinary: Left CVA tenderness. Rectal: Rectal exam not performed since no symptoms indicated blood loss. Extremities: No cyanosis or clubbing. Musculoskeletal: No swollen or erythematous joints. Neurological: Moves all 4 extremities. No myoclonus. Data 12/16/23 17:09 12/16/23 17:09 Micro: Microbiology 12/16/23 17:27 Blood Culture - Preliminary Blood SPECIMEN COLLECTED 12/16/23 17:25 Blood Culture - Preliminary Blood SPECIMEN COLLECTED A&P Assessment and plan (1) Sepsis: Severe sepsis SIRS: Tachycardic, leukocytosis Source: UTI, pyelonephritis Endorgan damage, ROSALINDA Lactic acidosis noted Blood cultures Status post 30 mL/kg IV fluid bolus Monitor blood pressure closely, currently soft, may need vasopressors pending clinical course Start broad-spectrum antibiotics, status post Zosyn in ED, cefepime allergy noted, continue with Zosyn (2) ROSALINDA (acute kidney injury): Suspect prerenal in the setting of sepsis IV fluid resuscitation as noted above Avoid nephrotoxins Strict I's and O's Daily weights Repeat labs in a.m. (3) Pyelonephritis: No hydronephrosis or nephrolithiasis Treat underlying infection Management of sepsis as above (4) Transaminitis: Elevated liver function enzymes suspected secondary to sepsis Trend liver enzyme levels If no improvement with treatment of sepsis, consider imaging Avoid hepatotoxins (5) Hyponatremia: Hypovolemic hyponatremia secondary to sepsis Management as above Repeat labs in a.m. (6) Hypothyroidism: Continue home Synthroid (7) Hypertension: Hold losartan due to sepsis and hemodynamic instability Monitor blood pressure closely (8) Hyperlipidemia: Hold statin due to elevated liver enzymes Plan DVT prophylaxis: Heparin CODE STATUS: Full code Attestations 2 Medical Necessity Statement*: Patient presents with intractable nausea and vomiting, found to have severe sepsis with expected hospitalization to cross 2 midnights for treatment of severe sepsis including hemodynamic monitoring, IV fluid resuscitation, broad- spectrum antibiotics, monitoring culture results, telemetry, and supportive care. Coding Level of Care Code Acute Code for [facility] Diagnoses Sepsis A41.9 ROSALINDA (acute kidney injury) N17.9 Pyelonephritis N12 Transaminitis R74.01 Hyponatremia E87.1 Hypothyroidism E03.9 Hypertension I10 Hyperlipidemia E78.5
[2023-12-16 20:37] LABS: Lactic Acid level (Lactate) 2.7 mmol/L (0.5-2.2)
--- NOTE | 2023-12-16 22:34 | PC.NURSE ---
2039 - Received from ER via stretcher, walked to bathroom and voided with no reports of pain. Walked to bed, placed on safety inspector. NS infusing at 175ml/hr. Awake, alert, and oriented. to bedside. 2234 - Report given to CLAUDIA sandoval.
[2023-12-16] MEDS: norepinephrine 4 MG/250 ML BAG 7.5 MG IV (23:12)
--- NOTE | 2023-12-16 23:47 | ECG_ITS ---
[facility] Test Date: 2023-12-16 Pat Name: Jennifer Barreto Department: Room: [facility] Gender: Female Panel Maker: : 1950 Requested By: Keke Oakley Order Number: [id number] Cass MD: Sam Herrera M.D. Measurements Intervals [place] Rate: 139 P: 53 VA: 163 QRS: 2 QRSD: 79 T: 54 QT: 329 QTc: 501 Interpretive Statements SINUS TACHYCARDIA LOW QRS VOLTAGE IN PRECORDIAL LEADS [QRS DEFLECTION < 1.0 mV IN CHEST LEADS] POSSIBLE RIGHT VENTRICULAR CONDUCTION DELAY [RSR (QR) IN V1/V2] NONSPECIFIC ST & T-WAVE ABNORMALITY Compared to ECG 12/16/2023 18:58:52 T-wave abnormality now present Electronically Signed On 12-17-2023 20:11:08 CDT by Sam Herrera M.D. [email or web address].[email or web address]/store/[id number]
[2023-12-16] MEDS: heparin 5,000 unit/mL INJ 1 mL 5000 UNIT SUBCUT (23:51)
[2023-12-16] MEDS: HYDROmorphone 1 mg/mL INJ 1 mL 0.2 MG IVP (23:51)
[2023-12-17] VITALS (95 sets, daily range): BP systolic 63–128; BP diastolic 35–84; PULSE 75–127; RESP 6–38; TEMP 36.9–37.1; O2SAT 88–100
[2023-12-17 00:33] LABS: Troponin 5 6HR 12.52 ng/L (0-10); Troponin 5 6HR Delta 1.52 ng/L (0-12)
--- NOTE | 2023-12-17 00:49 | PC.NURSE ---
Patient had a spontaneous event of SOB, tachycardia, hypotension, and anxiety. Physician notified and came to bedside. Patient placed on 2 L nc and given zofran & hydromorphone also received orders to start levophed. Patient then started to calm down and is now calm and no longer short of breath.
[2023-12-17 00:52] LABS: Procalcitonin > 100.00 ng/mL (0-0.5)
[2023-12-17] MEDS: vasopressin 40 UNIT/100 ML PREMIX 4.5 UNIT IV (02:58)
[2023-12-17] MEDS: fentaNYL 50 mcg/mL INJ 2mL IVP (03:48)
[2023-12-17 04:04] LABS: Basophils # 0.1 10^3/uL (0.0-0.1); Basophils % 0.2 %; Hematocrit 29.6 % (36-47); Lymphocytes # 0.6 10^3/uL (0.8-4.8); Lymphocytes % 2.2 %; Mean Corpuscular HGB Conc 30.4 g/dL (30-55); Mean Corpuscular Hemoglobin 27.8 pg (27-33); Mean Corpuscular Volume 91.4 fl (85-98); Mean Platelet Volume 10.2 fL (7.4-10.4); Monocytes # 0.2 10^3/uL (0.2-0.9); Monocytes % 0.8 %; Neutrophils # 25.77 10^3/uL (1.8-7.7); Neutrophils % 95.6 %; Nucleated Red Blood Cells % 0 %; Platelet Count 232 10^3/cmm (157-399); Red Blood Count 3.24 10^6/uL (3.85-5.65); Red Cell Distribution Width 14.4 % (12.1-15.1); White Blood Count 26.98 10^3/uL (3.29-11.43)
--- NOTE | 2023-12-17 04:06 | XRR_ITS ---
PROCEDURE INFORMATION: Exam: XR Chest Exam date and time: 12/17/2023 4:10 AM Age: 73 years old Clinical indication: Other vascular access device placement or adjustment; Central line, non-tunnelled; Patient HX: Check S/P RT central line placement; Additional info: Central line placement verification TECHNIQUE: Imaging protocol: Radiologic exam of the chest. Views: 1 view. COMPARISON: [place] [id number] 12/16/2023 6:15 PM FINDINGS: Tubes, catheters and devices: Central venous catheter seen on the right with its tip overlying the cavoatrial junction. Lungs: There are bilateral infiltrates in a relatively symmetric distribution suspicious for pulmonary edema. Pleural spaces: There may be trace pleural effusions. Heart/Mediastinum: The heart is slightly enlarged. There is calcified plaque involving the aorta. Bones/joints: Unremarkable. XR/XR chest 1V portable [id number] IMPRESSION: 1. Central line placement as above. 2. Cardiomegaly with bilateral infiltrates and possibly trace pleural effusions.
[2023-12-17 04:31] LABS: Alanine Aminotransferase 163 U/L (0-33); Albumin Level 3.2 g/dL (3.5-5.2); Alkaline Phosphatase 164 U/L (35-105); Anion Gap 20.3 (5-19); Aspartate Amino Transferase 164 U/L (0-32); Blood Urea Nitrogen 35 mg/dL (8-23); Calcium 7.7 mg/dL (8.5-10.5); Carbon Dioxide 14 mmol/L (22-29); Chloride 105 mmol/L (98-107); Creatinine Clr Calc Pharmacy 17.4772; Globulin 2.3 g/dL (1.3-4.6); Glucose 116 mg/dL (65-115); Magnesium 1.7 mg/dL (1.7-2.3); Osmolality Calculated 289 mOsm/kg (285-295); Phosphorus 2.1 mg/dL (2.5-4.5); Potassium 4.3 mmol/L (3.5-5.1); Sodium 135 mmol/L (136-145); Total Bilirubin 0.8 mg/dL (0.15-1.2); Total Protein 5.5 g/dL (6.6-8.7)
[2023-12-17] MEDS: norepinephrine 4 MG/250 ML BAG 60 MG IV (05:34)
[2023-12-17] MEDS: oxyCODONE 5 mg IR Tab/Cap PO (05:54)
[2023-12-17] MEDS: piperacillin-tazobactam 3.375 GM in sodium chloride 0.9% (plus) 50 ML IV ×2 (06:25→18:24)
--- NOTE | 2023-12-17 06:55 | USCV_ITS ---
Jennifer Barreto Age: 73 Gender: F : 1950 Exam Date: 12/17/2023 12:24 Ordering Phys: Jenny Bang MD Technologist: GLADYS Exam Location: [facility] [place] Indication: chf BP: 128 / 83 HR: 92 Rhythm: Sinus Technical Quality: Adequate MEASUREMENTS (Male / Female) Normal Values 2D ECHO LV Diastolic Diameter PLAX 3.1 cm 4.2 - 5.9 / 3.9 - 5.3 cm IVS Diastolic Thickness 1.1 cm 0.6 - 1.0 / 0.6 - 0.9 cm IVS Systolic Thickness 1.3 cm LVPW Diastolic Thickness 2.0 cm 0.6 - 1.0 / 0.6 - 0.9 cm LVPW Systolic Thickness 2.0 cm LVOT Diameter 2.0 cm LV Ejection Fraction 2D Teich 48.6 % LV Ejection Fraction MOD 4C 56.9 % LV Ejection Fraction MOD 2C 57.4 % LV Ejection Fraction 2C AL 58.4 % LA Diameter 3.0 cm RA Systolic Volume 4C AL 42.7 ml RA Systolic Volume 4C MOD 40.3 ml LA Sys Volume AL 39.4 cm cubed LA Sys Volume Index AL 22.1 cm cubed/m squared Aorta at Sinotubular Diameter 2.5 cm IVC Diameter 2.0 cm M-MODE LA Ao Ratio MM 1.4 AV Cusp Separation MM 1.7 cm DOPPLER AV Peak Velocity 130.7 cm/s LVOT Peak Velocity 82.0 cm/s AV Area Cont Eq vti 1.7 cm squared AV Area Cont Eq pk 2.0 cm squared MV Peak Velocity 124.0 cm/s MV Area PHT 5.9 cm squared Mitral E to A Ratio 0.9 TV Peak Velocity 286.5 cm/s TR Peak Velocity 334.0 cm/s TR Peak Gradient 44.6 mmHg TR Mean Velocity 264.0 cm/s TR Mean Gradient 29.8 mmHg TR Velocity Time Integral 86.8 cm PV Peak Velocity 54.0 cm/s RV Ejection Time 0.3 s FINDINGS Left Ventricle Normal LV size ejection fraction of 57%.abnormal septal motion consistent with conduction abnormality. Grade I/IV diastolic dysfunction (abnormal relaxation filling pattern), normal to mildly elevated filling pressures. Right Ventricle The right ventricle is normal in size and function. Right Atrium The right atrium is normal in size. Left Atrium The left atrium is normal in size. Mitral Valve Mild mitral valve regurgitation. Aortic Valve No gross abnormalities noted Tricuspid Valve Mild tricuspid valve regurgitation. Pulmonic Valve The pulmonary artery appears to be mildly dilated.mild pulmonary valve regurgitation. Pericardium Normal pericardium without effusion. Aorta Normal ascending aorta dimension. IVC Normal inferior vena cava. CONCLUSIONS Normal LV size ejection fraction of 57%.abnormal septal motion consistent with conduction abnormality. Grade I/IV diastolic dysfunction (abnormal relaxation filling pattern), normal to mildly elevated filling pressures. Mild mitral and tricuspid valve regurgitation. The pulmonary artery appears to be mildly dilated with mild pulmonary valve regurgitation. There is no pericardial effusion. There are no intracardiac masses. Compared to the study if previous study from 2013, the ejection fraction is unchanged Dr Micaela Guadalupe MD FACC (Electronically Signed) Final Date: 18 December 2023 23:14 S
[2023-12-17] MEDS: calcium gluconate 0.9% NaCL 1 GM/50 ML PREMIX IV (08:27)
[2023-12-17] MEDS: sodium chloride 0.9% 1,000 ML 100 ML IV ×2 (08:27→19:39)
[2023-12-17] MEDS: phosphorus 250 mg Tablet PO ×2 (08:28→17:15)
--- NOTE | 2023-12-17 09:17 | P.PN_ITS ---
Subjective 2 Subjective: Patient is not endorsing active chest pain abdominal pain not nausea vomiting Extremity hydrated On IV fluids and vasopressors Septic shock No sign of encephalopathy Patient is denying history of CHF NE or cardiomyopathy, no history of stroke, no history of recurrent UTI Vitals/I&O/Wt Last Vital Signs Temp 98.4 F 12/16/23 22:00 Pulse 100 12/17/23 06:00 Resp 20 H 12/17/23 05:54 BP 72/60 12/17/23 05:00 Pulse Ox 97 12/17/23 05:00 O2 Del Method Room Air 12/16/23 22:00 12/16/23 12/17/23 12/17/23 22:59 06:59 14:59 Intake Total 2400.67 / 2400.67 1251.105 / 3651.775 370.00 / 370.00 Output Total 175 / 175 Balance 2400.67 / 2400.67 1076.105 / 3476.775 370.00 / 370.00 Weight last 48 hrs Weight 70.851 kg Weight 70.851 kg Weight 66.361 kg Weight 61.689 kg Physical Exam 2 Narrative: Dehydrated Awake and alert Denies fever GCS 15 s1, S2 tachycardia hypotensive On room air Abdomen soft Lino catheter in place Urinary Catheter Management: Lino: Cath Placed During This Visit: yes Reason for Continuing Indwelling Catheter: Accurate Measurement of Urinary Output in Critically Ill Patients Urinary Catheter Date of Insertion: 12/17/23 Urinary Catheter Time of Insertion: 05:38 Data 12/17/23 03:01 12/17/23 03:01 Micro: Microbiology 12/16/23 17:27 Blood Culture - Preliminary Blood SPECIMEN COLLECTED 12/16/23 17:25 Blood Culture - Preliminary Blood SPECIMEN COLLECTED A&P Assessment and plan (1) Hypothyroidism: (2) Hyponatremia: (3) Transaminitis: (4) ROSALINDA (acute kidney injury): (5) Pyelonephritis: (6) Sepsis: (7) Septic shock: (8) Hypoxia: (9) Cardiomegaly: Plan Septic shock related to UTI/pyelonephritis On Zosyn for now No fever Leukocytosis worsening Maxed on vasopressor Add 1 dose of stress dose steroids Hypophosphatemia: Replenished Hypocalcemia: Replenished ROSALINDA: Related to septic shock Monitor output correlate with creatinine Clinically patient is very dehydrated Hyponatremic hypovolemia Anticipate improvement with IV fluids Hypoxia requiring 2 to 3 L currently patient has been weaned off Repeat ABG Metabolic acidosis related to lactic acidemia, will start bicarb drip Full code Cardiac diet Requested echo Attestations 2 Medical Necessity Statement*: Continue ICU management Diagnoses Hypothyroidism E03.9 Hyponatremia E87.1 Transaminitis R74.01 ROSALINDA (acute kidney injury) N17.9 Pyelonephritis N12 Sepsis A41.9 Septic shock A41.9; R65.21 Hypoxia R09.02 Cardiomegaly I51.7
[2023-12-17 09:38] LABS: ABG PCO2 32.7 mmHg (35-45); ABG PH Result 7.29 (7.35-7.45); Arterial Blood Gas Hematocrit 28.4 % (37-47); Base Excess ABG -10.2 mmol/L (-2.0-2.0); Blood Gas Allen Test Pos; Blood Gas Operator Identificat CAK; Blood Gas Sample Site Brachial, left; HCO3 ABG 15.5 mmol/L (22-26); Oxygen Device ROOM AIR; PO2 FiO2 Ratio Arterial Blood 167
[2023-12-17 09:41] LABS: PO2 ABG 35.1 mmHg (80.0-100.0)
[2023-12-17 09:42] LABS: Blood Gas Sample Type Venous
[2023-12-17] MEDS: norepinephrine 4 MG/250 ML BAG 37.5 MG IV (09:47)
[2023-12-17 10:02] LABS: Lactic Sepsis W/Reflex 2.4 mmol/L (0.5-2.2)
[2023-12-17] MEDS: sodium bicarbonate 150 MEQ in dextrose 5% 1,000 ML 100 MEQ IV (10:29)
[2023-12-17] MEDS: heparin 5,000 unit/mL INJ 1 mL 5000 UNIT SUBCUT ×2 (10:39→20:57)
[2023-12-17] MEDS: levothyroxine 112 mcg Tablet PO (10:39)
[2023-12-17] MEDS: ondansetron 2 mg/ML SDV 2 mL 4 MG IVP ×2 (10:42→21:45)
[2023-12-17 11:32] LABS: Reflex Lactate Order REFLEX LACTIC ORDERD
[2023-12-17 12:20] LABS: Lactic Acid level (Lactate) 2.2 mmol/L (0.5-2.2)
--- NOTE | 2023-12-17 20:03 | PM.CCN ---
Critical Care Event Note Called to bedside early this morning for central line placement because the patient was on pressors. Patient is awake and alert. Line placed with no complication. X-ray revealed line in good position. Cleared for use. Critical Care Time Code activated: No Critical Care Time (min): 0 Procedures Central Line Placement^ Right IJ: Time out performed: Yes Patient placed on monitor/pulse ox: Yes MD prep: mask, gown and gloves Central line prep: Chlorhexidine scrub Local anesthesia used: lidocaine 1% Amount of anesthesia used (ml): 3 Ultrasound used for placement: Yes Central line lumen inserted: triple Post procedure: sutured in place, good blood return, all ports aspirated, flushed, capped and sterile dressing applied Post procedure x-ray: tip of catheter in good position and no pneumothorax seen Patient tolerated procedure: well and no complications Complications: none Coding Level of Care Code Acute Code for [facility]
[2023-12-17] MEDS: acetaminophen 500 mg Tablet 1000 MG PO (20:11)
[2023-12-18] VITALS (66 sets, daily range): BP systolic 93–140; BP diastolic 52–85; PULSE 70–91; RESP 8–29; TEMP 36.5–36.8; O2SAT 87–98
[2023-12-18 04:29] LABS: Basophils # 0.1 10^3/uL (0.0-0.1); Basophils % 0.4 %; Eosinophils # 0.2 10^3/uL (0.0-0.8); Eosinophils % 0.7 %; Hematocrit 25.1 % (36-47); Lymphocytes # 1.9 10^3/uL (0.8-4.8); Lymphocytes % 6.6 %; Mean Corpuscular HGB Conc 32.3 g/dL (30-55); Mean Corpuscular Hemoglobin 28.3 pg (27-33); Mean Corpuscular Volume 87.8 fl (85-98); Mean Platelet Volume 10.4 fL (7.4-10.4); Monocytes # 1.4 10^3/uL (0.2-0.9); Monocytes % 4.8 %; Neutrophils # 23.28 10^3/uL (1.8-7.7); Neutrophils % 80.4 %; Nucleated Red Blood Cells % 0 %; Platelet Count 189 10^3/cmm (157-399); Red Blood Count 2.86 10^6/uL (3.85-5.65); Red Cell Distribution Width 14.4 % (12.1-15.1); White Blood Count 28.95 10^3/uL (3.29-11.43)
[2023-12-18 04:56] LABS: Alanine Aminotransferase 181 U/L (0-33); Albumin Level 2.8 g/dL (3.5-5.2); Alkaline Phosphatase 196 U/L (35-105); Aspartate Amino Transferase 135 U/L (0-32); Blood Urea Nitrogen 30 mg/dL (8-23); Calcium 7.5 mg/dL (8.5-10.5); Carbon Dioxide 21 mmol/L (22-29); Chloride 102 mmol/L (98-107); Globulin 2.4 g/dL (1.3-4.6); Glucose 89 mg/dL (65-115); Osmolality Calculated 280 mOsm/kg (285-295); Sodium 132 mmol/L (136-145); Total Bilirubin 0.4 mg/dL (0.15-1.2); Total Protein 5.2 g/dL (6.6-8.7)
[2023-12-18 04:59] LABS: Phosphorus 2.7 mg/dL (2.5-4.5)
[2023-12-18] MEDS: sodium chloride 0.9% 1,000 ML 100 ML IV (05:30)
[2023-12-18] MEDS: levothyroxine 112 mcg Tablet PO (05:31)
[2023-12-18] MEDS: piperacillin-tazobactam 3.375 GM in sodium chloride 0.9% (plus) 50 ML IV ×3 (06:17→23:03)
[2023-12-18] MEDS: phosphorus 250 mg Tablet PO (09:27)
[2023-12-18] MEDS: heparin 5,000 unit/mL INJ 1 mL 5000 UNIT SUBCUT ×2 (09:27→22:04)
--- NOTE | 2023-12-18 10:18 | PC.SOCIAL ---
IMM Updated Updated pt on IMM. No questions voiced. Provided pt a copy. Initialed, dated, & timed a copy & placed in chart.
--- NOTE | 2023-12-18 11:46 | P.PN_ITS ---
Subjective 2 Subjective: This morning patient is eating breakfast Not complain of any pain Can be transferred out of ICU Off Levophed since yesterday Cultures pending Leukocytosis worsening Off bicarb drip Creatinine improving Continue IV fluids Family at the bedside Vitals/I&O/Wt Last Vital Signs Temp 98.1 F 12/18/23 05:04 Pulse 75 12/18/23 10:00 Resp 20 H 12/18/23 10:00 BP 100/63 12/18/23 10:00 Pulse Ox 95 12/18/23 10:00 O2 Del Method Nasal Cannula 12/18/23 04:15 O2 Flow Rate 2 12/18/23 04:15 12/17/23 12/18/23 12/18/23 22:59 06:59 14:59 Intake Total 2021.562 / 2753.737 1102.042 / 3855.779 Output Total 950 / 950 1250 / 2200 Balance 1071.562 / 1803.737 -147.958 / 1655.779 Weight last 48 hrs Weight 70.851 kg Weight 70.851 kg Weight 70.851 kg Weight 66.361 kg Weight 61.689 kg Physical Exam 2 Narrative: Patient is awake and alert Signs of dehydration improving Pleasant cooperative Nonfocal neuroexam GCS 15 pleasant cooperative Lino catheter has been removed Nonfocal neuroexam Awake and alert No signs of confusion Urinary Catheter Management: Lino: Cath Placed During This Visit: yes Reason for Continuing Indwelling Catheter: Accurate Measurement of Urinary Output in Critically Ill Patients Urinary Catheter Date of Insertion: 12/17/23 Urinary Catheter Time of Insertion: 05:38 Data 12/18/23 03:44 12/18/23 03:44 Micro: Microbiology 12/16/23 18:05 Urine Culture - Preliminary Urine,Clean Catch Gram Negative Rods 12/16/23 17:27 Blood Culture - Preliminary Blood NEGATIVE TO DATE 12/16/23 17:25 Blood Culture - Preliminary Blood NEGATIVE TO DATE A&P Assessment and plan (1) Cardiomegaly: (2) Hypothyroidism: (3) Hyponatremia: (4) Transaminitis: (5) ROSALINDA (acute kidney injury): (6) Pyelonephritis: (7) Septic shock: (8) Sepsis: (9) Hypoxia: Plan Septic shock Pyonephritis Afebrile Cultures negative Continue antibiotics Transfer out of ICU Off Levophed Cardiomegaly Echo report pending Abnormal transaminases: Improving Discontinue statins Metabolic acidosis: Improved Discontinue bicarb drip ROSALINDA: Improving with IV fluid hydration creatinine 1.7 today Patient is able to tolerate diet, blood pressure slightly better, continue IV fluids Attestations 2 Medical Necessity Statement*: Patient likely will stay till Monday Diagnoses Cardiomegaly I51.7 Hypothyroidism E03.9 Hyponatremia E87.1 Transaminitis R74.01 ROSALINDA (acute kidney injury) N17.9 Pyelonephritis N12 Septic shock A41.9; R65.21 Sepsis A41.9 Hypoxia R09.02
[2023-12-18] MEDS: lactated ringers 1,000 ML 75 ML IV (15:27)
[2023-12-19] VITALS (7 sets, daily range): BP systolic 93–140; BP diastolic 57–84; PULSE 63–81; RESP 16–20; TEMP 36.7–37.1; O2SAT 93–97
[2023-12-19] MEDS: lactated ringers 1,000 ML 75 ML IV (04:03)
[2023-12-19 05:08] LABS: Basophils # 0.1 10^3/uL (0.0-0.1); Basophils % 0.4 %; Eosinophils # 0.6 10^3/uL (0.0-0.8); Eosinophils % 2.4 %; Hematocrit 26.4 % (36-47); Lymphocytes # 2.2 10^3/uL (0.8-4.8); Lymphocytes % 8.9 %; Mean Corpuscular HGB Conc 31.4 g/dL (30-55); Mean Corpuscular Hemoglobin 27.8 pg (27-33); Mean Corpuscular Volume 88.3 fl (85-98); Mean Platelet Volume 10.5 fL (7.4-10.4); Monocytes # 0.9 10^3/uL (0.2-0.9); Monocytes % 3.6 %; Neutrophils # 19.45 10^3/uL (1.8-7.7); Neutrophils % 80.5 %; Nucleated Red Blood Cells % 0 %; Platelet Count 202 10^3/cmm (157-399); Red Blood Count 2.99 10^6/uL (3.85-5.65); Red Cell Distribution Width 14.3 % (12.1-15.1); White Blood Count 24.16 10^3/uL (3.29-11.43)
[2023-12-19 05:34] LABS: Anion Gap 14.1 (5-19); Blood Urea Nitrogen 20 mg/dL (8-23); Carbon Dioxide 22 mmol/L (22-29); Chloride 111 mmol/L (98-107); Creatinine Clr Calc Pharmacy 31.3861; Glucose 124 mg/dL (65-115); Osmolality Calculated 300 mOsm/kg (285-295); Potassium 4.1 mmol/L (3.5-5.1); Sodium 143 mmol/L (136-145)
[2023-12-19] MEDS: piperacillin-tazobactam 3.375 GM in sodium chloride 0.9% (plus) 50 ML IV ×3 (06:12→22:04)
[2023-12-19] MEDS: levothyroxine 112 mcg Tablet PO (06:12)
--- NOTE | 2023-12-19 08:52 | P.PN_ITS ---
Subjective 2 Subjective: Patient doing well Urine culture showing gram-negative jeane Blood cultures negative Leukocytosis trending down No fever Patient tolerating diet Creatinine improving Vitals/I&O/Wt Last Vital Signs Temp 98.1 F 12/19/23 07:39 Pulse 63 12/19/23 07:39 Resp 17 12/19/23 07:39 BP 131/75 12/19/23 07:39 Pulse Ox 94 12/19/23 07:39 O2 Del Method Room Air 12/19/23 07:39 O2 Flow Rate 2 12/18/23 04:15 12/18/23 12/19/23 12/19/23 22:59 06:59 14:59 Intake Total 1083.333 / 1083.333 995 / 2078.333 Balance 1083.333 / 1083.333 995 / 8.333 Weight last 48 hrs Weight 61.689 kg Weight 70.851 kg Physical Exam 2 Narrative: Pleasant cooperative Euvolemic GCS 15 S1, S2 Eating breakfast . Nonfocal neuroexam Currently on room air Normotensive Urinary Catheter Management: Lino: Cath Placed During This Visit: yes, but has since been removed by the nurse Reason for Continuing Indwelling Catheter: Decision to DC Catheter Urinary Catheter Date of Insertion: 12/17/23 Urinary Catheter Time of Insertion: 05:38 Date Urinary Catheter Removed: 12/18/23 Time Urinary Catheter Discontinued: 07:00 Data 12/19/23 04:49 12/19/23 04:49 Micro: Microbiology 12/16/23 18:05 Urine Culture - Preliminary Urine,Clean Catch Gram Negative Rods A&P Assessment and plan (1) Pyelonephritis: (2) Septic shock: (3) Transaminitis: (4) ROSALINDA (acute kidney injury): (5) Cardiomegaly: (6) Hypothyroidism: Plan Septic shock: Resolved Sepsis: Improving Leukocytosis 29 IV steroids discontinued Cardiomegaly: No active sign of heart failure Diastolic CHF grade 1 diastolic dysfunction No active chest pain ROSALINDA related to pyelonephritis and septic shock: Improving creatinine improving with IV fluids Tolerating diet Discontinue IV fluids Urine culture showing gram-negative jeane blood culture negative Most likely patient will be a little go home by tomorrow with oral antibiotics for 10 days Will review culture report and then decide on antibiotics Full code Hypoxia improved currently on room air Attestations 2 Medical Necessity Statement*: Potential discharge by tomorrow Diagnoses Pyelonephritis N12 Septic shock A41.9; R65.21 Transaminitis R74.01 ROSALINDA (acute kidney injury) N17.9 Cardiomegaly I51.7 Hypothyroidism E03.9
[2023-12-19] MEDS: oxyCODONE 5 mg IR Tab/Cap PO (21:11)
[2023-12-19] MEDS: ondansetron 2 mg/ML SDV 2 mL 4 MG IVP (22:04)
[2023-12-19] MEDS: acetaminophen 500 mg Tablet 1000 MG PO (22:04)
[2023-12-20] VITALS: BP 104/60; PULSE 75; RESP 17; TEMP 37.1; O2SAT 94
[2023-12-20 04:00] VITALS: BP 123/77; PULSE 96; RESP 16; TEMP 37.2; O2SAT 91
[2023-12-20 05:57] LABS: Basophils # 0.1 10^3/uL (0.0-0.1); Basophils % 0.5 %; Eosinophils # 0.3 10^3/uL (0.0-0.8); Hematocrit 27.4 % (36-47); Lymphocytes # 1.2 10^3/uL (0.8-4.8); Lymphocytes % 7.6 %; Mean Corpuscular HGB Conc 31.4 g/dL (30-55); Mean Corpuscular Hemoglobin 27.3 pg (27-33); Mean Platelet Volume 9.7 fL (7.4-10.4); Monocytes # 0.6 10^3/uL (0.2-0.9); Monocytes % 3.9 %; Neutrophils # 12.98 10^3/uL (1.8-7.7); Neutrophils % 85.2 %; Nucleated Red Blood Cells % 0 %; Platelet Count 183 10^3/cmm (157-399); Red Blood Count 3.15 10^6/uL (3.85-5.65); Red Cell Distribution Width 14.4 % (12.1-15.1); White Blood Count 15.23 10^3/uL (3.29-11.43)
[2023-12-20] MEDS: piperacillin-tazobactam 3.375 GM in sodium chloride 0.9% (plus) 50 ML IV (06:13)
[2023-12-20] MEDS: levothyroxine 112 mcg Tablet PO (06:14)
[2023-12-20 06:20] LABS: Anion Gap 14.5 (5-19); Blood Urea Nitrogen 19 mg/dL (8-23); Carbon Dioxide 22 mmol/L (22-29); Chloride 111 mmol/L (98-107); Creatinine Clr Calc Pharmacy 27.4628; Glucose 97 mg/dL (65-115); Osmolality Calculated 298 mOsm/kg (285-295); Potassium 4.5 mmol/L (3.5-5.1); Sodium 143 mmol/L (136-145)
[2023-12-20 07:36] VITALS: BP 119/64; PULSE 82; RESP 17; TEMP 37; O2SAT 94
--- NOTE | 2023-12-20 07:58 | PM.DCS ---
Discharge Providers Date of Admission: 12/16/23 20:51 Date of Discharge: December 20, 2023 Attending Provider at Admission: Zion Vu MD Attending Provider at Discharge: Jenny Bang MD Primary Care Provider: Hoad Solano Diagnoses at Discharge Discharge Diagnosis (1) Pyelonephritis: Status: Acute (2) Septic shock: Status: Acute (3) Transaminitis: Status: Acute (4) ROSALINDA (acute kidney injury): Status: Acute (5) Cardiomegaly: Status: Acute (6) Hypothyroidism: Status: Acute Reason for Visit Reason for Visit: Low blood pressure Hospital Course Hospital Course 73-year-old female who was admitted for management evaluation of left-sided flank pain, septic shock, she was admitted to the ICU required Levophed along vasopressin initially I had a stress dose steroid which worsened her leukocytosis, she remained afebrile, blood culture remain negative, urine culture showed pansensitive E. coli, CT abdomen pelvis consistent with pyelonephritis and cystitis, we were able to successfully wean her off vasopressors, she was transferred to [facility], she remained afebrile throughout her hospitalization, her white count has improved to 15,000 at the time of discharge she will get 10-day regimen of antibiotics. She suffered from ROSALINDA as well which improved with IV fluid hydration. I will discontinue her losartan and add amlodipine for hypertension. Will remove central line before her discharge Physical Exam Narrative: Awake and alert GCS 15 Eating breakfast Pleasant cooperative Euvolemic Blood pressure 119/64 mmHg On room air abdomen soft Urinary Catheter Management: Lino: Cath Placed During This Visit: yes, but has since been removed by the nurse Reason for Continuing Indwelling Catheter: Decision to DC Catheter Urinary Catheter Date of Insertion: 12/17/23 Urinary Catheter Time of Insertion: 05:38 Date Urinary Catheter Removed: 12/18/23 Time Urinary Catheter Discontinued: 07:00 Discharge Data Studies Completed and Pending Completed Studies During Hospitalization Category [place] [id number] Stat Cat Scan 12/16/23 18:01 Completed XR chest 1V portable [id number] Stat Exams 12/16/23 17:05 Completed XR chest 1V portable [id number] Stat Exams 12/17/23 04:06 Completed CV. echo complete* [id number] Routine Ultrasound 12/17/23 06:55 Completed Pending at discharge Category Date Time Status Blood Culture Stat Lab 12/16/23 17:27 Results Radiology Impressions Chest/Abdomen/Pelvis CT 12/16/23 18:01 IMPRESSION: 1. 2.0 cm pure ground-glass right upper lobe nodule, suspicious for adenocarcinoma spectrum lesion. No solid component. Follow-up per Fleischner guidelines recommended. 2. Additional biapical solid nodules, which may be related to nodular pleural-parenchymal scarring. Close attention on follow-up imaging is also recommended. 3. Moderate to large hiatal hernia. 4. No focal consolidation or acute findings. IMPRESSION: 1. Diffuse bladder wall thickening, suspicious for cystitis. 2. Left perinephric and periureteral stranding and edema, suspicious for pyelonephritis and ureteritis. Findings may also be related to a recently passed stone. There is no CT evidence of nephrolithiasis. No hydronephrosis. 3. Left upper retroperitoneal lymphadenopathy, likely reactive. COMMENTS: Consistent with the [place] [employer]'s Incidental Findings Committee white paper (J Am Kevan Radiol 2018): Any incidental renal lesion less than 1 cm or classified as too small to characterize, or any incidental cystic renal lesion characterized as simple-appearing, is likely benign. No follow-up imaging is recommended for these lesions per consensus recommendations based on imaging criteria. Chest X-Ray 12/17/23 04:06 IMPRESSION: 1. Central line placement as above. 2. Cardiomegaly with bilateral infiltrates and possibly trace pleural effusions. Laboratory Results WBC 15.23 10^3/uL (3.29-11.43) H 12/20/23 05:46 RBC 3.15 10^6/uL (3.85-5.65) L 12/20/23 05:46 Hgb 8.60 g/dL (11.27-16.99) L 12/20/23 05:46 Hct 27.4 % (36-47) L 12/20/23 05:46 MCV 87.0 fl (85-98) 12/20/23 05:46 MCH 27.3 pg (27-33) 12/20/23 05:46 MCHC 31.4 g/dL (30-55) 12/20/23 05:46 RDW 14.4 % (12.1-15.1) 12/20/23 05:46 Plt Count 183 10^3/cmm (157-399) 12/20/23 05:46 MPV 9.7 fL (7.4-10.4) 12/20/23 05:46 Neut % (Auto) 85.2 % 12/20/23 05:46 Lymph % (Auto) 7.6 % 12/20/23 05:46 [place] % (Auto) 3.9 % 12/20/23 05:46 Eos % (Auto) 2.0 % 12/20/23 05:46 Baso % (Auto) 0.5 % 12/20/23 05:46 Neut # (Auto) 12.98 10^3/uL (1.8-7.7) H 12/20/23 05:46 Lymph # (Auto) 1.2 10^3/uL (0.8-4.8) 12/20/23 05:46 [place] # (Auto) 0.6 10^3/uL (0.2-0.9) 12/20/23 05:46 Eos # (Auto) 0.3 10^3/uL (0.0-0.8) 12/20/23 05:46 Baso # (Auto) 0.1 10^3/uL (0.0-0.1) 12/20/23 05:46 Nucleated RBC % (auto) 0 % 12/20/23 05:46 Nucleated RBCs # 0.0 /100WBC 12/20/23 05:46 Specimen Type Venous 12/17/23 09:26 Sample Site Brachial, left 12/17/23 09:26 ABG pH 7.29 (7.35-7.45) L 12/17/23 09:26 ABG pCO2 32.7 mmHg (35-45) L 12/17/23 09:26 ABG pO2 35.1 mmHg (80.0-100.0) L* 12/17/23 09:26 ABG PO2/FiO2 Ratio 167 12/17/23 09:26 ABG HCO3 15.5 mmol/L (22-26) L 12/17/23 09:26 ABG O2 Saturation 71.5 12/16/23 17:04 ABG Base Excess -10.2 mmol/L (-2.0-2.0) L 12/17/23 09:26 Josemanuel Test Pos 12/17/23 09:26 A-a O2 Gradient 10.1 mmHg (5-10) H 12/16/23 17:04 Hematocrit 28.4 % (37-47) L 12/17/23 09:26 Hgb O2 Saturation 70.0 % (95-100) L 12/16/23 17:04 Carboxyhemoglobin 0.8 %THgb (0.4-20.1) 12/16/23 17:04 Methemoglobin 1.3 % (0.4-1.5) 12/16/23 17:04 Total Hemoglobin 11.2 g/dL (12-16) L 12/16/23 17:04 Sodium 135.0 mmol/L (131-143) 12/16/23 17:04 Potassium 4.1 mmol/L (3.5-5.0) 12/16/23 17:04 Glucose 109.0 mg/dL (70-115) 12/16/23 17:04 Ionized Calcium 1.2 mmol/L (1.1-1.4) 12/16/23 17:04 O2 Delivery Device Room air 12/17/23 09:26 FiO2 21.0 % 12/17/23 09:26 [employer]scape [employer] ID Cak 12/17/23 09:26 Sodium 143 mmol/L (136-145) 12/20/23 05:46 Potassium 4.5 mmol/L (3.5-5.1) 12/20/23 05:46 Chloride 111 mmol/L (98-107) H 12/20/23 05:46 Carbon Dioxide 22 mmol/L (22-29) 12/20/23 05:46 Anion Gap 14.5 (5-19) 12/20/23 05:46 BUN 19 mg/dL (8-23) 12/20/23 05:46 Creatinine 1.6 mg/dL (0.5-0.9) H 12/20/23 05:46 GFR Calculation Not Reportable 12/20/23 05:46 Glucose 97 mg/dL (65-115) 12/20/23 05:46 Calculated Osmolality 298 mOsm/kg (285-295) H 12/20/23 05:46 Lactic Acid 2.4 mmol/L (0.5-2.2) H 12/17/23 09:36 Lactic Acid (Sepsis) 2.2 mmol/L (0.5-2.2) 12/17/23 11:47 Calcium 8.0 mg/dL (8.5-10.5) L 12/20/23 05:46 Phosphorus 2.7 mg/dL (2.5-4.5) 12/18/23 03:44 Magnesium 1.7 mg/dL (1.7-2.3) 12/17/23 03:01 Total Bilirubin 0.4 mg/dL (0.15-1.2) 12/18/23 03:44 AST 135 U/L (0-32) H 12/18/23 03:44 ALT 181 U/L (0-33) H 12/18/23 03:44 Alkaline Phosphatase 196 U/L (35-105) H 12/18/23 03:44 Troponin T Baseline 11 ng/L (0-10) H 12/16/23 17:09 Troponin T 120 Minute 7.99 ng/L (0-10) 12/16/23 18:48 Delta Troponin T -3.01 ABS# (0-10) L 12/16/23 18:48 Troponin T Hi Sens 6Hr 12.52 ng/L (0-10) H 12/16/23 23:56 Troponin T Hi Sens 6Hr Delta 1.52 ng/L (0-12) 12/16/23 23:56 Total Protein 5.2 g/dL (6.6-8.7) L 12/18/23 03:44 Albumin 2.8 g/dL (3.5-5.2) L 12/18/23 03:44 Globulin 2.4 g/dL (1.3-4.6) 12/18/23 03:44 Procalcitonin > 100.00 ng/mL (0-0.5) H 12/16/23 23:56 TSH 0.90 uIU/mL (0.27-4.20) 12/16/23 17:09 Urine Color Yellow (Yellow) 12/16/23 18:05 Urine Appearance Turbid (CLEAR) A 12/16/23 18:05 Urine pH 5.5 (5-7) 12/16/23 18:05 Ur Specific [place] 1.016 (1.005-1.030) 12/16/23 18:05 Urine Protein 2+ (Negative) A 12/16/23 18:05 Urine Glucose (UA) Negative (Normal) 12/16/23 18:05 Urine Ketones Trace (Negative) 12/16/23 18:05 Urine Blood 3+ (Negative) A 12/16/23 18:05 Urine Nitrate Negative (Negative) 12/16/23 18:05 Urine Bilirubin Negative (Negative) 12/16/23 18:05 Urine Urobilinogen 1.0 mg/dL (Negative) 12/16/23 18:05 Ur Leukocyte Esterase 3+ (Negative) A 12/16/23 18:05 Urine RBC 0-2 /hpf (0-2) 12/16/23 18:05 Urine WBC >100 /hpf (0-5) H 12/16/23 18:05 Ur Squamous Epith Cells 6-10 /hpf (0-5) 12/16/23 18:05 Amorphous Sediment Not Reportable 12/16/23 18:05 Urine Bacteria 4+ /hpf (NONE) H 12/16/23 18:05 Hyaline Casts 44.25 /lpf 12/16/23 18:05 Urine Mucus 1+ /hpf 12/16/23 18:05 SARS-CoV-2 Ag (Rapid) negative (Negative) 12/16/23 17:29 Vitals Last Vital Signs Temp 98.6 F 12/20/23 07:36 Pulse 82 12/20/23 07:36 Resp 17 12/20/23 07:36 BP 119/64 12/20/23 07:36 Pulse Ox 94 12/20/23 07:36 O2 Del Method Room Air 12/20/23 07:36 O2 Flow Rate 2 12/18/23 04:15 Discharge Plan Discharge Patient Disposition: Home Condition: Stable Prescriptions: New amlodipine 10 mg tablet 10 mg PO DAILY Qty: 60 2RF Rx Instructions: hold if bp less than 100/90 levofloxacin 750 mg tablet 750 mg PO DAILY Qty: 10 0RF Macrobid 100 mg capsule 100 mg PO BID 7 Days Qty: 14 0RF Rx Instructions: must administer with a meal/food hydrocodone-acetaminophen 5-325 mg tablet 1 tab PO DAILY PRN (Reason: pain) Qty: 5 0RF Continued levothyroxine 112 mcg tablet 112 mcg PO DAILY atorvastatin 20 mg tablet 20 mg PO DAILY PreserVision AREDS 2,148 mcg-113 mg-45 mg-17.4mg tablet 2 tab PO BID Rx Instructions: administer with AM and PM meals cetirizine [Zyrtec] 10 mg tablet 10 mg PO DAILY PRN (Reason: allergies) omega 6-rgf-knp-fish oil [Fish Oil] 1,200 (144-216) mg capsule 1 cap PO BID Discontinued losartan 100 mg tablet 100 mg PO DAILY Discharge Orders: Discharge Order (Routine); Ordered 12/20/23 Ordered By: Jenny Bang Referrals: Hoda Solano FNP [Primary Care Provider] - 12/25/23 11:15 am Discharge Diet: Cardiac Discharge Activity: Increase activity as tolerated Patient Instructions: Nitrofurantoin (By mouth), Amlodipine (By mouth), Levofloxacin (By mouth), Acute Kidney Injury (DC), Kidney Infection (DC), Sepsis (DC), Opioid Safety Discharge Attestations Time Spent in Discharge Care*: greater than 30 min Quality Metrics Clinical Quality Measures [ No reported AMI, CVA or VTE this stay] Coding Level of Care Code Acute Code for Chg Fwd Diagnoses Pyelonephritis N12 Septic shock A41.9; R65.21 Transaminitis R74.01 ROSALINDA (acute kidney injury) N17.9 Cardiomegaly I51.7 Hypothyroidism E03.9
[2023-12-20 10:05] VITALS: BP 119/64; PULSE 82; RESP 17; TEMP 37; O2SAT 94
--- NOTE | 2023-12-20 10:40 | PC.SOCIAL ---
IMM Update pg 2 of IMM updated and reviewed w/ patient. Copy provided and copy dated, initialed and placed in chart.
== END 2023-12-20 11:15 | disposition home or self-care (01) | DRG 872 ==
LOC: ER 20:50 → ICU 20:52 → MEDSURG 12-18 15:15
PROVIDERS: Emergency Medicine; Admitting Provider Internal Medicine; Emergency Provider Emergency Medicine; PCP Nurse Practitioner Family; Visit Provider Internal Medicine
DX: A41.9 Sepsis, unspecified organism (principal); N12 Tubulo-interstitial nephritis, not specified as acute or chronic; E87.1 Hypo-osmolality and hyponatremia; E87.20 Acidosis, unspecified; N17.9 Acute kidney failure, unspecified; R65.20 Severe sepsis without septic shock; N28.89 Other specified disorders of kidney and ureter; I10 Essential (primary) hypertension; E78.5 Hyperlipidemia, unspecified; E03.9 Hypothyroidism, unspecified; H35.30 Unspecified macular degeneration; R09.02 Hypoxemia; I51.7 Cardiomegaly; Z11.52 Encounter for screening for COVID-19; Z87.891 Personal history of nicotine dependence
CPT/HCPCS: 36415; 36592; 36600; 51702; 71045; 71250; 74176; 80048; 80051; 80053; 81003; 81015; 82330; 82803; 82805; 83605; 83735; 84100; 84145; 84443; 84484; 85025; 87040; 87077; 87086; 87186; 87426; 93005; 93306; 96365; 96372; 96374; 96375; 96376; 99285; C1751; J0612; J1170; J1644; J2405; J2543; J2598; J3010; J7030; J7040; J7070; J7120

== ENCOUNTER 2024-01-26 08:43 | Outpatient (CLI) | payer MEDICARE, SELFPAY ==
--- NOTE | 2024-01-26 08:51 | MM_ITS ---
WS: [id number] Bilateral screening 3D tomosynthesis digital mammogram, 01/26/2024 8:53 AM Clinical Data: SCREENING Comparison: 02/25/2022, 05/21/2020, 05/16/2019, 02/15/2016, 02/25/2014, 12/05/2011. Findings: No spiculated masses or clustered calcifications are seen. There are no secondary signs of carcinoma . MM/MM scr BI tomosynthesis [id number] Impression: Negative bilateral mammogram unchanged. Recommend annual screening mammograms. BIRADS: 1 - Negative. FOLLOW UP: 1 Year Follow-up DENSITY: There are scattered areas of fibroglandular density. The CAD metal checker was used
== END 2024-01-26 08:44 | disposition home or self-care (01) ==
LOC: RAD 08:44
PROVIDERS: PCP Nurse Practitioner Family; Visit Provider Nurse Practitioner Family
DX: Z12.31 Encounter for screening mammogram for malignant neoplasm of breast (principal)
CPT/HCPCS: 77063; 77067

== ENCOUNTER 2024-05-24 13:54 | Outpatient (CLI) | payer MEDICARE, SELFPAY ==
--- NOTE | 2024-05-24 14:51 | CT_ITS ---
WS: [id number] CT chest w con* [id number] HISTORY: PULMONARY NODULE TECHNIQUE: Axial imaging performed through the thorax. Coronal and sagittal reformats are submitted. All CT scans at [facility] use at least one of these dose optimization techniques: automated exposure control; mA and/or kV adjustment per patient size (includes targeted exams where dose is mat ched to clinical indication); or iterative reconstruction. CONTRAST: Omnipaque 350; 100 mL IV. DLP: 285.51 mGy.cm COMPARISON: 12/16/2023 Lungs and central airway: Mild to pulmonary hyperexpansion. Groundglass nodule measures 14 x 12 mm in the RIGHT upper lobe. No interval change since 12/16/2023 but new since 2013. There is biapical pleur al thickening and scarring. Mild pleural tethering at the lung apices. Benign heavily calcified granu mikaela measuring 16 mm in the lingula. No new mass or pulmonary nodule. No pneumonia. Pleura: Normal. No pleural effusion. Heart and pericardium: Normal size heart with no pericardial effusion. Mediastinum and marjorie: No mediastinum or hilar adenopathy. Vessels: Mild atherosclerosis aorta. Normal size aorta. Normal size pulmonary artery. Chest wall and lower neck: No soft tissue masses. Upper abdomen: Large hiatal hernia. No outlet obstruction. There are several small lymph nodes in the paraesophageal fat which are stable. No adrenal mass. Visualized liver is normal. Osseous structures: Mild increase in thoracic kyphosis. CT/CT chest w con* [id number] IMPRESSION: 1. Stable groundglass nodule RIGHT upper lobe measuring 14 x 12 mm. No increas e in size since 12/16/2023. Continued concern for low-grade malignancy. Recommen d follow-up chest CT in 1 year. 2. No pneumonia. 3. No mediastinal or hilar adenopathy. 4. Large hiatal hernia.
[2024-05-24 15:13] LABS: Blood Urea Nitrogen 18 mg/dL (8-23)
[2024-05-24] MEDS: iohexol 350 mg/mL 500 mL Btl (per mL) IV (15:23)
== END 2024-05-24 13:55 | disposition home or self-care (01) ==
LOC: RAD 13:54
PROVIDERS: PCP Nurse Practitioner Family; Visit Provider Nurse Practitioner Family
DX: R91.8 Other nonspecific abnormal finding of lung field (principal); K44.9 Diaphragmatic hernia without obstruction or gangrene; J92.9 Pleural plaque without asbestos; J84.10 Pulmonary fibrosis, unspecified; I70.0 Atherosclerosis of aorta; R59.0 Localized enlarged lymph nodes; M40.294 Other kyphosis, thoracic region
CPT/HCPCS: 71260; 82565; 84520